=== PATIENT | female | born 1995 | race Caucasian/White ===

== ENCOUNTER → 2020-08-20 12:11 | Outpatient (CLI) | payer BC, SELFPAY ==
--- NOTE | ~2020-08-20 | US_ITS ---
EXAMINATION: US venous doppler [facility] EXAM DATE: 08/20/2020 12:29 INDICATION: Edema of left lower extremity . TECHNIQUE: Multiple grayscale, color flow and Doppler images of the left lower extremity deep venous system were obtained and reviewed. There is no prior study for comparison. FINDINGS: The left common femoral, femoral and profunda veins demonstrate normal color flow, respirat ory variation, augmentation and compressibility. Compressibility, color flow confirmed within the le ft popliteal, posterior tibial, peroneal, and greater saphenous veins. IMPRESSION: 1. No left lower extremity deep venous thrombosis. Reviewed, dictated and finalized at location A. [facility]
== END ==
PROVIDERS: Visit Provider Obstetrics & Gynecology
DX: R60.0 Localized edema (principal)
CPT/HCPCS: 93971

== ENCOUNTER 2020-10-09 00:50 | Inpatient (IN) | payer OTHER, MEDICAID, SELFPAY ==
[2020-10-09] VITALS (178 sets, daily range): BP systolic 74–156; BP diastolic 48–126; PULSE 25–169; RESP 18; TEMP 36.5–37; O2SAT 84–100; BMI 31.0
[2020-10-09 02:09] LABS: Basophils Percent Auto 0.4 % (0.2-1.2); Eosinophils Absolute Auto 0.1 K/mm3 (0-0.3); Eosinophils Percent Auto 1.2 % (0-4.4); Hematocrit 33.3 % (37.0-47.0); Hemoglobin 11.3 g/dL (12.0-15.0); Immature Granulocyte Absolute 0.05 K/mm3 (0.00-0.031); Immature Granulocyte Percent A 0.5 % (0-0.5); Lymphocytes Absolute Auto 1.59 K/mm3 (0.9-3.2); Lymphocytes Percent Auto 15.9 % (18.3-44.2); Mean Corpuscular HGB Conc 33.9 g/dl (32-36); Mean Corpuscular Hemoglobin 29.1 pg (26-34); Mean Corpuscular Volume 85.8 fl (80-100); Mean Platelet Volume 9.8 fl (7.4-10.4); Monocytes Absolute Auto 0.6 K/mm3 (0.1-0.6); Monocytes Percent Auto 6.3 % (2.6-8.5); Neutrophils Absolute Auto 7.6 K/mm3 (1.3-6.7); Neutrophils Percent Auto 75.7 % (45.5-73.1); Platelet Count Result 349 k/mm3 (150-375); Red Blood Count 3.88 M/mm3 (4.2-5.4); Red Cell Distribution Width 12.3 % (11.5-14.5)
--- NOTE | 2020-10-09 02:18 | LDADM ---
This patient, Gilda Blanco, was admitted to Labor/Delivery/Recovery 107 on 10/09/20 at 00:50. Plans for labor, pain management and were discussed with patient. Patient/family oriented to hospital policies and general routines including ID bracelet, bed and alarms, visiting hours, pain management, procedures, bathroom and other care routines, personal items, smoking policy, room service/diet and guest tray routines, security routines, and visiting hours. Patient/Family are encouraged to report perceived risks to care and to ask questions if they do not understand what they are told or what they should do. See OBIX for further documentation.
[2020-10-09] MEDS: LACTATED RINGERS 1,000 ML 125 ML IV CONT ×3 (03:11→11:39)
[2020-10-09] MEDS: OXYTOCIN 30 UNITS/NS 500 ML 30 UNITS/500 ML BAG IV CONT (03:11)
[2020-10-09] MEDS: fentaNYL CITRATE INJ (*CRX) 100 MCG/2 ML VIAL 50 MCG IV PUSH (05:13)
--- NOTE | 2020-10-09 06:35 | P.PNAN_ITS ---
Anes - Eval Pre Procedure Procedure: labor epidural Date/Time: 10/09/20 06:35 Surgeon: bri Preop Diagnosis: pain during labor Pre Op Diagnosis: Leaking Patient Data Age: 25 Gender: F Height: 1.57 m Weight: 77 kg Last Vital Signs Temp 36.8 C 10/09/20 03:00 Pulse 99 10/09/20 06:34 BP 139/68 10/09/20 06:34 Pulse Ox 100 10/09/20 06:30 Allergies Allergy/AdvReac Type Severity Reaction Status Date / Time No Known Allergies Allergy Unverified 02/16/13 15:13 Home Medications Medication Instructions Recorded Confirmed Type PNV cmb#95-ferrous fumarate-FA 1 tablet PO DAILY 09/26/20 10/09/20 History [] Laboratory Tests 10/09/20 10/09/20 10/09/20 02:02 02:02 02:02 WBC 10.0 K/mm3 K/mm3 (4.5-10.0) RBC 3.88 M/mm3 L M/mm3 (4.2-5.4) Hgb 11.3 g/dL L g/dL (12.0-15.0) Hct 33.3 % L % (37.0-47.0) MCV 85.8 fl fl (80-100) MCH 29.1 pg pg (26-34) MCHC 33.9 g/dl g/dl (32-36) RDW 12.3 % % (11.5-14.5) Plt Count 349 k/mm3 k/mm3 (150-375) MPV 9.8 fl fl (7.4-10.4) Immature Gran % (Auto) 0.5 % % (0-0.5) Neut % (Auto) 75.7 % H % (45.5-73.1) Lymph % (Auto) 15.9 % L % (18.3-44.2) [place] % (Auto) 6.3 % % (2.6-8.5) Eos % (Auto) 1.2 % % (0-4.4) Baso % (Auto) 0.4 % % (0.2-1.2) Lymph # (Auto) 1.59 K/mm3 K/mm3 (0.9-3.2) [place] # (Auto) 0.6 K/mm3 K/mm3 (0.1-0.6) Eos # (Auto) 0.1 K/mm3 K/mm3 (0-0.3) Baso # (Auto) 0.0 K/mm3 K/mm3 (0.0-0.1) Abs Immat Gran (auto) 0.05 K/mm3 H K/mm3 (0.00-0.031) Absolute Neuts (auto) 7.6 K/mm3 H K/mm3 (1.3-6.7) Absolute Nucleated RBC 0.0 K/mm3 K/mm3 (0.0-0.012) Nucleated RBC % 0.0 % % (0.0-0.2) RPR Pending Blood Type O Positive Antibody Screen Negative Patient hx anesthesia problems: none Family hx anesthesia problems: none [facility] Family History Family History (Updated 09/26/20 @ 12:34 by Katie Flood RN) Other No pertinent family history Social History Social History Smoking status: Never smoker Substance use: never Gender identity (if verbalized by the patient): Female Spiritual care concerns: No Exam Day of Procedure 10/09/20 06:35
--- NOTE | 2020-10-09 07:52 | WPDOBADMIT ---
Obstetrics - Admit Note Admission Note: record reviewed. No pertinent additions to the history and/or any subsequent changes in the physical findings that are not consistent with the expected course of the were found. SROM, AROM forebag, 4-5/90/-2 clear moderate fluid Additions to the history and/or subsequent changes in the physical findings follow. None.
[2020-10-09 14:27] LABS: Rapid Plasma Reagin Non-Reactive (NonReactive)
--- NOTE | 2020-10-09 15:45 | PM.OBPRVD ---
OB - Delivery Note Procedure Delivery date: 10/09/20 Procedure: vaginal delivery Delivery augmentation: rupture of membranes Delivery monitor: external FHT and external uterine Route of delivery: Laceration Description: Perineal - 1st Degree Delivery repair: vicryl Specimen: No Quantitative Blood Loss (ml): 115 Anesthesia type: Epidural Disposition: other () Rough And Ready Baby Date of : 10/09/20 Time of : 15:30 Weeks of gestation at delivery: 37 Infant gender: Female Weight (pounds): 6 Weight (ounces): 1 presentation: vertex position: Right Occiput Anterior Placenta delivery description: Spontaneous cord vessel description: 3 Vessels and Clamped/Cut score one minute: 6 score five minutes: 8
[2020-10-09] MEDS: OXYTOCIN 30 UNITS/NS 500 ML 30 UNITS/500 ML BAG 125 UNITS IV CONT (16:08)
[2020-10-09] MEDS: WITCH HAZEL 40 PADS 1 PAD TOPICAL (17:49)
[2020-10-09] MEDS: IBUPROFEN 600 MG TABLET PO (17:49)
[2020-10-09] MEDS: BENZOCAINE 20% AER SPR (*SP) 56 GM CAN 1 SPRAY TOPICAL (17:50)
--- NOTE | 2020-10-09 18:12 | OBPPTRN ---
Patient transferred to post room #280 via wheelchair with in crib. Support person present. Oriented to unit, room, information board, rooming in, admission packet and security measures. Patient verbalizes understanding.
--- NOTE | 2020-10-10 05:41 | P.PNOB_ITS ---
OB - PN: Subj Subjective Date/time seen: 10/10/20 05:41 Patient comments: no complaints baby status: doing well [place] feeding status: exclusively bottle feeding OB - PN: Obj Data Labs CBC & Chem 7: 10/09/20 02:02 Labs: Laboratory Results - last 24 hr 10/09/20 02:02 RPR Non-reactive OB - PN A/P Time Spent With Patient Time: Total time spent is greater than 50% in coordination of care (as documented) at patient's floor/unit and/or counseling patient: Review of Systems Review of Systems: All systems reviewed & are unremarkable except as noted in HPI and below Exam Const: General: cooperative Orientation/consciousness: patient oriented x3 Psych: Affect: normal affect Attitude: cooperative Thought content: Yes Normal thought content present Judgement: Good judgement present (Psych)
--- NOTE | 2020-10-10 05:43 | P.DS_ITS ---
DS: Admitting Diagnosis Admitting Diagnosis Admitting Diagnosis: SROM OB - DS: Summary OB Procedures : None OB Procedures Intrapartum: Spontaneous Vag Delivery OB Procedures: : None Time Spent with Patient Time attestation: Total time spent providing and/or coordinating discharge services: DS: Data Data Completed and Pending Labs on day of discharge: Labs from last 24 hours 10/09/20 02:02 RPR Non-reactive Discharge Plan Discharge Attending physician on discharge: Rufus Sharpe Discharging Clinician: Christa Gonzalez Patient Disposition: Home, Self-Care Activity: pelvic rest Diet: regular Patient Instructions: Antibiotic Form Stand Alone Forms: General Discharge Information Follow-up/Referrals: Christa Gonzalez CNM [Certified Nurse Independent Beauty Consultant] - 4 Weeks Discharge Medications: Continued PNV cmb#95-ferrous fumarate-FA [] 28 mg iron- 800 mcg Tablet 1 tablet PO DAILY RF: 0 Date of admission: 10/09/20 00:50 Primary Care Provider: PHYSICIAN,SOFTWARE QUALITY ASSURANCE ANALYST Admitting Provider: Rufus Sharpe Attending physician on admission: Rufus Sharpe Condition: Stable
[2020-10-10 08:31] LABS: Hematocrit 31.9 % (37.0-47.0); Hemoglobin 10.5 g/dL (12.0-15.0)
--- NOTE | 2020-10-10 09:00 | PC.NURSE ---
PT introductions made and plan of care discussed per post , pain management, bottle feeding, daily care activities and pending discharge to home. PT verbalized understanding of such care.
[2020-10-10 09:12] VITALS: BP 126/64; PULSE 85; RESP 18; TEMP 36.8; O2SAT 98
[2020-10-10] MEDS: IBUPROFEN 600 MG TABLET PO ×2 (09:13→15:47)
--- NOTE | 2020-10-10 09:50 | WPDANLDPN2 ---
Anes-Prog Note L&D Date/Time: 10/10/20 09:50 Comfortable throughout: labor and delivery Neuraxial method: epidural Epidural/Spinal procedure site: clean & non-tender Neuro status: Neuro function grossly intact. Cardiovascular status: normal Respiratory status: normal Airway patency: baseline Mental status: baseline Post-Op hydration status: normal Vital Signs: Last Vital Signs Temp 36.7 C 10/09/20 19:40 Pulse 90 10/09/20 19:40 Resp 18 10/09/20 19:40 BP 134/77 10/09/20 19:40 Pulse Ox 100 10/09/20 15:13 Pain score (VAS): 09/27 Post-procedural complaints: none Patient feedback: Patient satisfied with anesthetic care.
[2020-10-10] MEDS: DOCUSATE SODIUM 100 MG CAPSULE PO (16:44)
--- NOTE | 2020-10-10 16:59 | PC.NURSE ---
Patient viewed the discharge video Mother & Baby Care, The First Two Weeks . Patient was given the opportunity and encouraged to ask questions. Patient verbalized understanding of information shared and has been given the mother/baby guide for home reference.
--- NOTE | 2020-10-10 17:45 | PC.NURSE ---
PT received discharge instructions per protocol and verbalized understanding of such instructions.
--- NOTE | 2020-10-10 18:15 | PC.NURSE ---
PT discharged to home ambulatory to waiting car accompanied by spouse and infant. Follow up appts confirmed
[2020-10-12 07:53] VITALS: BP 123/74; PULSE 79; RESP 16; TEMP 36.9; O2SAT 99
== END 2020-10-10 18:15 | disposition home or self-care (01) | DRG 807 ==
LOC: ANHLDR 02:37 → ANHOB2 18:31
PROVIDERS: Advanced Practice Midwife; Admitting Provider Obstetrics & Gynecology; Visit Provider Obstetrics & Gynecology
DX: O76 Abnormality in fetal heart rate and rhythm complicating labor and delivery (principal); Z37.0 Single live birth; O70.0 First degree perineal laceration during delivery; Z3A.37 37 weeks gestation of pregnancy
CPT/HCPCS: 36415; 84112; 85014; 85018; 85025; 86592; 86850; 86900; 86901; A9270; J2590; J2795; J3010; J7120

== ENCOUNTER 2022-11-06 12:36 | Outpatient (CLI) | payer OTHER, MEDICAID, SELFPAY ==
--- NOTE | ~2022-11-06 | MR_ITS ---
EXAMINATION: MR pituitary wo/w con DATE: 11/06/2022 14:00 INDICATION: Abnormal results of other endocrine function studies TECHNIQUE: Magnetic resonance imaging (MRI) of the brain and brainstem was performed without and with 12 mL Multihance intravenous contrast. Whole-brain sequences included sagittal T1-weighted FSE, axia l diffusion-weighted FS EPI, axial T2*-weighted GRE, axial T2-weighted FLAIR Propeller, and axial T2- weighted Propeller. Small [id number] sequences included sagittal and coronal T1-weighted FSE cente red at the pituitary. Postcontrast sequences included small [id number] coronal T1-weighted FSE in a time course and sagittal T1-weighted FSE and whole-brain axial T1-weighted FSE. Apparent diffusion coefficient (ADC) maps were created. COMPARISON: None. FINDINGS: There are no areas of restricted diffusion to suggest acute infarction. No intracranial hemorrhage. N ormal size, appearance and homogeneous enhancement to the pituitary gland with normal posterior pitui tary bright spot on spot on T1-weighted imaging. There is fusiform thickening of the distal 5 mm the pituitary stalk which measures 2 x 3 mm in maximal orthogonal dimensions. No other abnormal intracran ial mass lesions. There are no intraparenchymal signal abnormalities seen on the other pulse sequence s. The ventricles are symmetric and normal in size. There are no abnormal extra-axial fluid collectio ns. Flow voids are seen in the cerebral arteries on the T2-weighted sequences consistent with their e xpected patency. Mild mucosal thickening the paranasal sinuses with small mucous retention cysts lizett g the floor of the bilateral maxillary sinuses. Visualized orbits and soft tissues are unremarkable. There are no areas of abnormal enhancement on the post contrast images. IMPRESSION: 1. Mild fusiform thickening of the distal pituitary stalk which measures up to 2 x 3 mm maximal ortho gonal dimensions with normal-appearing pituitary. Differential would include lymphocytic hypophysitis , pituicytoma, sarcoidosis, lymphoma or metastatic disease. Reviewed, dictated and finalized at location A. [facility] IMPRESSION: 1. Mild fusiform thickening of the distal pituitary stalk which measures up to 2 x 3 mm maximal orthogonal dimensions with normal-appearing pituitary. Differe ntial would include lymphocytic hypophysitis, pituicytoma, sarcoidosis, lymphom a or metastatic disease.
== END 2022-11-06 12:37 | disposition home or self-care (01) ==
PROVIDERS: Visit Provider Internal Medicine Endocrinology, Diabetes & Metabolism
DX: R94.7 Abnormal results of other endocrine function studies (principal)
CPT/HCPCS: 70553; A9577